=== PATIENT | female | born 1995 | race Caucasian/White ===

== ENCOUNTER 2017-04-01 18:30 | Emergency (ER) | payer OTHER ==
[~2017-04-01] VITALS: Ht 152.4 cm; Wt 117.4 kg
[~2017-04-01 18:30] MED LIST: ADHD MED; KEFLEX500 MG PO; MOBIC15 MG PO; PYRIDIUM100 MG PO; RITALIN LA30 MG PO; ZOLOFT50 MG PO; [UNRECOGNIZED DRUG - OTHER]
[2017-04-01 19:15] LABS: HEMATOCRIT 38.6 % (36.0-46.0); HEMOGLOBIN 12.8 G/DL (11.9-15.5); MCH 28.5 PG (29.0-34.0); MCHC 33.2 G/DL (30.0-36.0); PLATELET COUNT 401 K/uL (156-360); RBC DIS.WIDTH-CV 15.4 % (11.8-14.6); RBC DIS.WIDTH-SD 48.5 % (39-53); RED BLOOD COUNT 4.49 M/uL (3.80-5.20); WHITE BLOOD COUNT 9.4 K/uL (4.1-10.2)
[2017-04-01 19:27] LABS: CHLORIDE 108 mEq/L (99-109); POTASSIUM 3.8 mEq/L (3.7-5.4); SODIUM 141 mEq/L (136-147)
[2017-04-01 19:28] LABS: GLUCOSE 93 mg/dL (70-99)
[2017-04-01 19:32] LABS: CREATININE 0.7 mg/dL (0.6-1.3); GFR ESTIMATE (CALCULATED) > 59 mL/min/
[2017-04-01 19:33] LABS: UREA NITROGEN (BUN) 10 mg/dL (9-23)
[2017-04-01 19:36] LABS: TROP-I INTERPRETATION NEGATIVE; TROPONIN-I < 0.01 ng/mL (0.0-0.30)
[2017-04-01] MEDS ORDERED: MOTRIN800 MG PO (20:33)
[2017-04-01 20:56] LABS: QUANTITATIVE HCG < 4.0 MIU/ML
[2017-04-01 21:02] VITALS: BP 110/70
== END 2017-04-01 21:05 | disposition home or self-care (01) ==
LOC: EME 18:30
DX: R07.1 Chest pain on breathing (principal); R05 Cough; F17.200 Nicotine dependence, unspecified, uncomplicated; Z71.6 Tobacco abuse counseling; R20.2 Paresthesia of skin; R00.0 Tachycardia, unspecified
CPT/HCPCS: 71046; 80048; 84484; 84702; 85027; 93005; 99281; 99284